=== PATIENT | female | born 1995 | race Caucasian/White ===

== ENCOUNTER → 2022-11-23 | Day surgery (SDC) | payer OTHER ==
[2022-11-21 16:28] VITALS: BMI 27.6
[~2022-11-23] MED LIST: PROPOFOL 120 ML ONE
[2022-11-23 09:36] VITALS: RESP 20; TEMP 97.2
[2022-11-23 09:39] VITALS: BP 103/69; PULSE 74
== END | disposition home or self-care (01) ==
LOC: FASU-ENDO 07:45
PROVIDERS: ATTEND Internal Medicine Gastroenterology
PROC: 0DB78ZX Excision of Stomach, Pylorus, Via Natural or Artificial Opening Endoscopic, Diagnostic (ICD-10-PCS; 2022-11-23)
PROC: 0DB98ZX Excision of Duodenum, Via Natural or Artificial Opening Endoscopic, Diagnostic (ICD-10-PCS; principal; 2022-11-23 08:44)
DX: K29.50 Unspecified chronic gastritis without bleeding (principal); B96.81 Helicobacter pylori [H. pylori] as the cause of diseases classified elsewhere
CPT/HCPCS: 81025; 87070; 87075; 87205; 88305-TC; 88342-TC